=== PATIENT | female | born 1975 | race Caucasian/White ===

== ENCOUNTER 2017-01-06 12:47 | Emergency (ER) | payer OTHER | END 2017-01-06 13:43 | disposition home or self-care (01) | LOC: FER 12:47 | DX: H60.92 Unspecified otitis externa, left ear (principal); J01.90 Acute sinusitis, unspecified; Z88.0 Allergy status to penicillin | CPT/HCPCS: 99283 ==

== ENCOUNTER 2017-04-30 21:31 | Emergency (ER) | payer OTHER | END 2017-04-30 23:24 | disposition home or self-care (01) | LOC: FER 21:31 | DX: M54.32 Sciatica, left side (principal); F31.9 Bipolar disorder, unspecified; Z91.040 Latex allergy status; Z88.0 Allergy status to penicillin; Z79.899 Other long term (current) drug therapy | CPT/HCPCS: 72170; 73502; J1100; J1885 ==